=== PATIENT | female | born 1980 | race Hispanic/Latino ===

== ENCOUNTER 2017-11-08 12:53 | Emergency (ER) | payer SELFPAY ==
[2017-11-08] MEDS ORDERED: TETANUS/DIPHTHERIA TOXOID [ADULT] 0.5 ML VIAL IM ONE (13:02)
== END 2017-11-08 13:29 | disposition home or self-care (01) ==
LOC: EDH 12:53
DX: S61.300A Unspecified open wound of right index finger with damage to nail, initial encounter (principal); Z72.0 Tobacco use; W23.0XXA Caught, crushed, jammed, or pinched between moving objects, initial encounter; Y93.89 Activity, other specified; Y92.098 Other place in other non-institutional residence as the place of occurrence of the external cause; Y99.8 Other external cause status
CPT/HCPCS: 73140; 90471; 90714

== ENCOUNTER 2018-10-07 18:05 | Emergency (ER) | payer SELFPAY ==
[2018-10-07] MEDS ORDERED: IPRATROPIUM/ALBUTEROL SULFATE 3 ML SOLUTION IH ONE (18:32)
[2018-10-07 19:31] LABS: APPEARANCE,URINE CLEAR (CLEAR); COLOR,URINE YELLOW (YELLOW); GLUCOSE, URINE (UA) NEGATIVE (NEGATIVE); KETONES,URINE 40 mg/dL (NEGATIVE); OCCULT BLOOD,URINE NEGATIVE (NEGATIVE); PH,URINE 5.5 (5.0-8.0); PROTEIN,URINE NEGATIVE (NEGATIVE)
[2018-10-07 19:32] LABS: BILIRUBIN,URINE NEGATIVE (NEGATIVE); LEUKOCYTE ESTERASE ,URINE NEGATIVE (NEGATIVE); NITRATE,URINE NEGATIVE (NEGATIVE); UROBILINOGEN,URINE 0.2 mg/dL (0.2-1.0)
[2018-10-07 19:33] LABS: HCG,QUAL RESULT NEGATIVE (NEGATIVE)
[2018-10-07 19:34] LABS: BILIRUBIN,TOTAL 0.3 mg/dL (0.2-1.0); CREATININE 0.7 mg/dL (0.5-1.5); POTASSIUM 3.3 mmol/L (3.5-5.1)
[2018-10-07 19:35] LABS: ALBUMIN 3.8 g/dL (3.5-5.0); TOTAL PROTEIN, SERUM 8.3 g/dL (6.0-8.3)
[2018-10-07 19:45] LABS: BILIRUBIN,DIRECT 0.1 mg/dL (0.0-0.3)
[2018-10-07 19:51] LABS: CORRECTED WHITE BLOOD COUNT 12.7 K/uL (4.5-11.0); HEMATOCRIT 24.1 % (36-48); MEAN CORPUSCULAR HEMOGLOBIN 19.9 pg (27.0-33.0); MEAN CORPUSCULAR HGB CONC 31.5 g/dL (32.0-36.0); MEAN CORPUSCULAR VOLUME 63.2 fL (79-99); PLATELET COUNT (AUTO) 297 K/uL (130-400); RED BLOOD CELL COUNT(AUTO) 3.82 MIL/uL (4.00-5.50); RED CELL DISTRIBUTION WIDTH 19.6 % (11.0-15.5); WHITE BLOOD COUNT (AUTO) 12.7 K/uL (4.8-10.8)
[2018-10-07 19:52] LABS: BASOPHILS % (AUTO) 0.3 % (0.0-5.0); LYMPHOCYTES % (AUTO) 11.1 % (21.0-51.0); MONOCYTES % (AUTO) 8.2 % (3.0-13.0); NEUTROPHILS % (AUTO) 80.4 % (40.0-77.0)
== END 2018-10-07 20:23 | disposition home or self-care (01) ==
LOC: EDH 18:05
DX: J20.9 Acute bronchitis, unspecified (principal); D50.0 Iron deficiency anemia secondary to blood loss (chronic); Z88.0 Allergy status to penicillin; Z98.890 Other specified postprocedural states; Z72.0 Tobacco use
CPT/HCPCS: 36415; 71045; 80048; 80076; 81003; 81025; 85025; 87804; 94640

== ENCOUNTER 2019-05-11 12:32 | Emergency (ER) | payer SELFPAY ==
[2019-05-11] MEDS ORDERED: ACETAMINOPHEN EXTRA STRENGTH 500 MG TABLET ONE (13:02)
== END 2019-05-11 13:21 | disposition home or self-care (01) ==
LOC: EDH 12:32
DX: S29.011A Strain of muscle and tendon of front wall of thorax, initial encounter (principal); S40.021A Contusion of right upper arm, initial encounter; Z88.0 Allergy status to penicillin; Z72.0 Tobacco use; Y35.893A Legal intervention involving other specified means, suspect injured, initial encounter; Y93.89 Activity, other specified; Y92.098 Other place in other non-institutional residence as the place of occurrence of the external cause; Y99.8 Other external cause status

== ENCOUNTER → 2022-11-25 | Outpatient (CLI) | payer MEDICAID ==
[2022-11-25 15:53] LABS: CREATININE 0.7 mg/dL (0.5-1.5)
== END | disposition home or self-care (01) ==
LOC: LAB 15:25
PROVIDERS: ATTEND Family Medicine
DX: R16.0 Hepatomegaly, not elsewhere classified (principal)
CPT/HCPCS: 36415; 82565; 84520

== ENCOUNTER → 2022-11-29 | Outpatient (CLI) | payer MEDICAID ==
[~2022-11-29] MED LIST: IOHEXOL-350 75 ML VIAL IV ONE
== END | disposition home or self-care (01) ==
LOC: RAH 11:35
PROVIDERS: ATTEND Family Medicine
DX: K44.9 Diaphragmatic hernia without obstruction or gangrene (principal); R16.0 Hepatomegaly, not elsewhere classified; K76.9 Liver disease, unspecified
CPT/HCPCS: 74170; Q9967